=== PATIENT | male | born 1980 | race Caucasian/White ===

== ENCOUNTER 2019-11-18 09:18 | Outpatient (NON) | payer BC, SELFPAY ==
[2019-11-18 19:12] LABS: SARS-CoV-2 RNA PCR Negative
== END 2019-11-18 09:19 ==
PROVIDERS: Visit Provider Family Medicine
DX: Z20.828 Contact with and (suspected) exposure to other viral communicable diseases (principal)
CPT/HCPCS: 87635; C9803; U0003

== ENCOUNTER 2022-03-14 07:26 | Outpatient (CLI) | payer OTHER, SELFPAY ==
--- NOTE | 2022-04-12 15:22 | WPDSLEEPSTUD ---
Sleep Study Date of Study: 03/14/22 Ordering Provider: Eh Lee MD Interpreting Physician: Kirsten Chaudhary, Sleep Study Type: Polysomnogram Height: 1.68 m Weight: 72.575 kg Body Mass Index: 25.8 Neck Circumference (inches): 14.5 Ben Bolt: 19 Reason for Sleep Study Falls asleep anywhere and very quickly. Sleep History The patient is a 42-year-old male with chronic low back pain, daytime hypersomnia, ADHD and history of tobacco use that had a sleep study ordered by his primary care for evaluation of hypersomnia. The patient denies awakening from sleep short of breath. He denies awakening at night with heartburn, belching or cough. He rarely snores loud enough others complain. He denies having trouble sleeping when he has a cold. He denies waking up gasping for air throughout the night. He denies having breathing problems at night observed by himself or others. He frequently sweats excessively at night. He rarely has heart palpitations or irregular heartbeats during the night. He constantly falls asleep during the day but rarely falls asleep while driving. He occasionally falls asleep during physical effort. He rarely falls asleep when laughing or crying. He occasionally experiences loss of muscle tone when extremely emotional. He frequently has trouble at school or work due to sleepiness. He rarely has sleep paralysis. He constantly experiences vivid dreamlike scenes upon awakening or falling asleep. He denies feeling afraid of falling asleep. He constantly has nightmares and frequently remembers his dreams. He constantly has thoughts racing through his mind. He frequently feels sad or depressed. He occasionally has anxiety. He constantly has muscular tension. He frequently notices parts of his body jerk. He rarely has crawling and aching feelings in his legs and rarely has leg pain during the night. He frequently grinds his teeth during sleep and occasionally awakens with morning jaw pain. He is constantly bothered by pain during the day but rarely awakened by pain during the night. He occasionally wakes up feeling stiff in the morning. He constantly wakes up with sore achy muscles. He constantly wakes up with pain in the neck, spine or other joints. The patient goes to bed between 10:00 p.m. and midnight on both weekdays and weekends. He is able to fall asleep in under a minute. He wakes up 1-2 times throughout the night. He is able to fall asleep within seconds. He wakes up at 6:00 a.m. on weekdays. He typically gets 5-7 hours of sleep per day. He will stay in bed for 15-20 minutes after waking up in the morning. He currently lives with his and 2 children. He does not consume any caffeinated beverages within 2 hours of bedtime. He will engage in physical exercise before bedtime. He will watch television before falling asleep. He will take naps in the afternoon or the evening and they are refreshing. He drinks 1-2 caffeinated beverages per day. He is a former smoker. He denies alcohol and recreational drug use. [facility] Past Medical History Medical History BMI 25.0-25.9,adult BMI 26.0-26.9,adult Screening, lipid Sleep attack Family History Family History Grandparent Cerebrovascular accident Diabetes mellitus Father No problems noted. Mother No problems noted. Sibling No problems noted. Social History Social History Smoking status: Never smoker Tobacco type: cigarettes Second hand tobacco smoke exposure: Yes Alcohol intake: former Substance use: never Substance use type: does not use Additional occupation/education comments: [employer] Medications Home Medications Medication Instructions Recorded Confirmed Type meloxicam 15 mg tablet 1
[2022-04-12 15:24] VITALS: BMI 25.8
== END 2022-03-15 06:59 | disposition home or self-care (01) ==
PROVIDERS: PCP Family Medicine; Visit Provider Family Medicine
DX: G47.30 Sleep apnea, unspecified (principal); G47.10 Hypersomnia, unspecified
CPT/HCPCS: 95810

== ENCOUNTER 2022-07-25 13:41 | Emergency (ER) | payer OTHER, SELFPAY ==
--- NOTE | 2022-07-25 13:44 | ED.LOWEXIN ---
HPI - Extremity Injury (Lower) General Chief Complaint: Extremity Problem,Nontraumatic Stated Complaint: rt calf knot Time Seen by Provider: 07/25/22 13:44 Source: patient and RN notes reviewed History of Present Illness HPI Narrative: Patient is a 42-year-old male who presents to urgent care with complaints of a red and painful region to the right calf. Patient states that he noticed approximately 3 weeks ago however the area was not red. Patient states that last night he had it and noticed some redness and tenderness to the area. Patient denies any history of DVT or heart condition. Denies any pain on ambulation. Denies any chest pain or shortness of breath. Denies any drainage from the area. No other acute complaints. No acute distress noted. Patient aware of the plan of care. Some parts of this dictation were generated by voice recognition software and may contain typographical and/or grammatical inaccuracies. Related Data Allergies Allergy/AdvReac Type Severity Reaction Status Date / Time No Known Allergies Allergy Mild Verified 07/18/22 15:22 Review of Systems Review of Systems: CONSTITUTIONAL: Denies fever, chills, or sweats. EYES: Denies visual changes, redness, or discharge. ENT: Denies rhinorrhea, congestion, sore throat, or otalgia. CARDIOVASCULAR: Denies chest pain, palpitations, or edema. RESPIRATORY: Denies cough or dyspnea. GASTROINTESTINAL: Denies abdominal pain, nausea, vomiting, or diarrhea. GENITOURINARY: Denies dysuria or hematuria. SKIN: Reports of a reddened tender area to the right calf. Denies rash or itching. MUSCULOSKELETAL: Denies back pain, joint pain, or myalgia. NEUROLOGIC: Denies headache, numbness, or weakness. All other systems reviewed are negative, except as documented in HPI. [facility] Past Medical History Medical History BMI 25.0-25.9,adult BMI 26.0-26.9,adult Narcolepsy Screening, lipid Sleep attack Sleep disorder Surgical History Surgical History Hx of tonsillectomy Family History Family History Grandparent Cerebrovascular accident Diabetes mellitus Father No problems noted. Mother No problems noted. Sibling No problems noted. Social History Social History Smoking status: Never smoker Tobacco type: cigarettes Second hand tobacco smoke exposure: Yes Alcohol intake: former Substance use: never Substance use type: does not use Lack of Transportation: No Lack of Food: Never True Current Housing: I Have Housing Concerned About Future Housing: No Difficulty Paying Gas/Electric Bills: Decline to Answer Difficulty Paying for Meds: Decline to Answer Currently Unemployed: Decline to Answer Education: High School Diploma/GED Difficulty w/ Childcare or Family Care: No Living arrangements: with family Occupation/Education: occupation Additional occupation/education comments: [employer] Comments At the time of my signature, I reviewed and agree with the nursing past medical, surgical, social, and family history. There is no relevant family history pertinent to the patient complaint. Exam Narrative: GENERAL: This is a well-nourished, well-developed patient, in no apparent distress. HEAD: normocephalic, atraumatic. EYES: PERRL. Sclera clear/white. Vision is grossly intact. EARS: External ears normal NOSE: External nose normal with no obvious nasal discharge, nares without redness, no rhinorrhea. THROAT: Mucous membranes moist NECK: Neck supple SKIN: 3 x 3cm area of circular erythema, firm non fluctuant consistent with folliculitis to the right calf. Warm, intact with no suspicious lesions or rash, good texture and turgor. NEURO: awake, alert, and oriented to pers
[2022-07-25 14:21] VITALS: BP 132/94; PULSE 81; RESP 16; TEMP 36.6; O2SAT 99
== END 2022-07-25 14:35 | disposition home or self-care (01) ==
PROVIDERS: Emergency Provider Nurse Practitioner Family
DX: L73.9 Follicular disorder, unspecified (principal)
CPT/HCPCS: 99213; G0463